=== PATIENT | male | born 1935 | race African-American/Black ===

== ENCOUNTER 2021-06-16 11:55 | Emergency (ER) | payer OTHER ==
[~2021-06-16] VITALS: Ht 180.3 cm; Wt 80.0 kg
[2021-06-16] MEDS ORDERED: ASPIRIN 81MG TABLET PO ONE (12:30)
[2021-06-16] MEDS ORDERED: SODIUM CHLORIDE 0.9% 1000ML BAG (SEPSIS BOLUS) IV ONE (12:30)
[2021-06-16 13:10] LABS: BASOPHILS % 0.7 % (0.0-2.0); EOSINOPHILS % 0.3 % (0.0-5.0); LYMPHOCYTES % 20.3 % (20.0-50.0); MEAN CORPUSCULAR HEMOGLOBIN 30.7 pg (28.0-32.0); MEAN CORPUSCULAR VOLUME 89.6 fL (80.0-94.0); MEAN PLATELET VOLUME 8.4 fl (7.4-10.4); MONOCYTES % 9.2 % (2.0-8.0); NEUTROPHILS % 69.5 % (40.0-76.0); PLATELET 132 x1000/uL (130-400); RED BLOOD CELL COUNT 4.57 mill/uL (4.7-6.1); RED CELL DISTRIBUTION WIDTH 14.9 % (11.6-14.6)
[2021-06-16 13:13] LABS: CHLORIDE 106 mEq/L (98-107)
[2021-06-16 13:20] LABS: BETA HYDROXYBUTYRATE 0.1 mMol/L (0.0-0.3)
[2021-06-16 13:31] LABS: D-DIMER 1.07 mg/L FEU (<0.50); PARTIAL THROMBOPLASTIN TIME 28.2 sec (23.4-31.0); PROTHROMBIN TIME 10.9 sec (9.6-11.0)
[2021-06-16 13:32] LABS: BG BASE EXCESS -0.1 mmol/L (-2.0-2.0); BG CARBOXYHEMOGLOBIN 0.6 % (0.5-1.5); BG DEOXYHEMOGLOBIN 2.9 % (0.0-5.0); BG FRACTION INSPIRED OXYGEN 21; BG HCO3 ACT 23.9 mmol/L (22.0-26.0); BG METHEMOGLOBIN 0.3 % (0.0-1.5); BG OXYGEN SATURATION 97.1 % (92.0-98.5); BG OXYHEMOGLOBIN 96.2 % (94.0-97.0); BG PCO2 37.2 mmHg (35.0-45.0); BG PH 7.426 (7.350-7.450); BG PO2 89.7 mmHg (75.0-100.0); BG SAMPLE SITE RIGHT RADIAL; BG TOTAL HEMOGLOBIN 14.4 g/dL (12.0-18.0); BG VENT MODE ROOM AIR
[2021-06-16 15:00] LABS: CLARITY URINE CLEAR (CLEAR); COLOR URINE YELLOW (YELLOW); KETONES URINE NEGATIVE (NEGATIVE); LEUKOCYTE ESTERASE URINE NEGATIVE (NEGATIVE); NITRITE URINE NEGATIVE (NEGATIVE); OCCULT BLOOD URINE NEGATIVE (NEGATIVE); PH URINE 6.5 (4.5-8.0); PROTEIN URINE 1+ (NEGATIVE); SPECIFIC GRAVITY URINE 1.022 (1.005-1.030)
[2021-06-16] MEDS ORDERED: IOHEXOL-350 100 ML BOTTLE ONE (16:29)
[2021-06-16 20:00] VITALS: BP 160/84
== END 2021-06-16 20:20 | disposition short-term general hospital (02) ==
LOC: ER 11:55
DX: R06.02 Shortness of breath (principal); E11.65 Type 2 diabetes mellitus with hyperglycemia; R94.31 Abnormal electrocardiogram [ECG] [EKG]; I10 Essential (primary) hypertension; Z79.4 Long term (current) use of insulin; J44.9 Chronic obstructive pulmonary disease, unspecified
CPT/HCPCS: 36415; 36600; 71045; 71275; 80053; 81003; 82010; 82375; 82805; 83880; 83930; 84484; 85025; 85379; 85610; 85730; 87086; 87426; 93005; 96360; 99285; J7030; Q9967

== ENCOUNTER 2021-08-09 10:34 | Inpatient (IN) | payer OTHER ==
[~2021-08-09] VITALS: Ht 188 cm; Wt 85.7 kg
[2021-08-09] MEDS ORDERED: ONDANSETRON HCL 4MG/2ML INJ IV STA (11:53)
[2021-08-09] MEDS ORDERED: MAGNESIUM/ALUMINUM HYDROXIDE/SIMETHICONE 30ML UDC PO STA (11:53)
[2021-08-09 12:11] LABS: BG BASE EXCESS 0.3 mmol/L (-2.0-2.0); BG CARBOXYHEMOGLOBIN 0.7 % (0.5-1.5); BG DEOXYHEMOGLOBIN 2.6 % (0.0-5.0); BG FRACTION INSPIRED OXYGEN 21; BG HCO3 ACT 23.3 mmol/L (22.0-26.0); BG METHEMOGLOBIN 0.4 % (0.0-1.5); BG OXYGEN SATURATION 97.4 % (92.0-98.5); BG OXYHEMOGLOBIN 96.3 % (94.0-97.0); BG PH 7.467 (7.350-7.450); BG PO2 88.9 mmHg (75.0-100.0); BG SAMPLE SITE LEFT RADIAL; BG TOTAL HEMOGLOBIN 14.4 g/dL (12.0-18.0); BG VENT MODE ROOM AIR
[2021-08-09 12:50] LABS: BASOPHILS % 0.7 % (0.0-2.0); EOSINOPHILS % 0.2 % (0.0-5.0); HEMATOCRIT. 42.7 % (42.0-52.0); HEMOGLOBIN. 14.4 g/dL (14.0-18.0); LYMPHOCYTES % 17.3 % (20.0-50.0); MEAN CORPUSCULAR HEMOGLOBIN 30.2 pg (28.0-32.0); MEAN CORPUSCULAR VOLUME 89.3 fL (80.0-94.0); MEAN PLATELET VOLUME 8.1 fl (7.4-10.4); MONOCYTES % 8.1 % (2.0-8.0); NEUTROPHILS % 73.7 % (40.0-76.0); PLATELET 138 x1000/uL (130-400); RED BLOOD CELL COUNT 4.78 mill/uL (4.7-6.1); RED CELL DISTRIBUTION WIDTH 14.6 % (11.6-14.6)
[2021-08-09 13:00] LABS: CHLORIDE 104 mEq/L (98-107)
[2021-08-09] MEDS ORDERED: ASPIRIN 325MG EC TABLET PO ONE (14:00)
[2021-08-09] MEDS ORDERED: IOHEXOL-350 100 ML BOTTLE ONE (14:53)
[2021-08-10] VITALS (7 sets, daily range): BP systolic 129–162; BP diastolic 60–92
[2021-08-10] MEDS ORDERED: ACETAMINOPHEN 325MG TABLET PO PRN (01:30)
[2021-08-10] MEDS ORDERED: IPRATROPIUM/ALBUTEROL 0.5-3(2.5)MG/3ML NEB HHN PRN ×2 (01:30→17:45)
[2021-08-10] MEDS ORDERED: DIPHENHYDRAMINE 50MG/ML VIAL IV PRN (01:30)
[2021-08-10] MEDS ORDERED: DEXTROSE 50% WATER 50ML SYRINGE IV PRN (01:30)
[2021-08-10] MEDS: ACETAMINOPHEN 325MG TABLET PO PRN (02:12)
[2021-08-10] MEDS: ENOXAPARIN 40MG/0.4ML SYR SUBCUT SCH (02:13)
[2021-08-10] MEDS: ZOLPIDEM TARTRATE 5MG TABLET PO PRN ×2 (02:13→21:15)
[2021-08-10] MEDS ORDERED: ESCI10TA PO (02:30)
[2021-08-10] MEDS ORDERED: CLOP75TA33 PO (02:31)
[2021-08-10] MEDS ORDERED: TAMS-11 PO (02:31)
[2021-08-10] MEDS ORDERED: ROSU40TA PO (02:32)
[2021-08-10] MEDS ORDERED: TRAM50TA3 PO (02:32)
[2021-08-10] MEDS ORDERED: AMLO2.5T45 MT (02:33)
[2021-08-10] MEDS ORDERED: LISI2.5T47 PO (02:33)
[2021-08-10] MEDS ORDERED: ASPI-1497 PO (02:34)
[2021-08-10] MEDS: SODIUM CHLORIDE 0.9% INJ 3ML FLUSH IVF SCH ×3 (05:49→21:16)
[2021-08-10] MEDS: INSULIN LISPRO 100 UNITS/ML SUBCUT SCH ×4 (05:53→21:00)
[2021-08-10] MEDS: BLOOD SUGAR DIAGNOSTIC STRIP TEST SCH ×4 (05:53→21:15)
[2021-08-10] MEDS: ASPIRIN 81MG EC TABLET PO SCH (08:50)
[2021-08-10] MEDS: CLONIDINE 0.1MG TABLET PO PRN (08:51)
[2021-08-10] MEDS: FAMOTIDINE 20MG TABLET PO SCH ×2 (08:51→21:15)
[2021-08-10] MEDS: ONDANSETRON HCL 4MG/2ML INJ IV PRN (12:49)
[2021-08-10] MEDS: IPRATROPIUM/ALBUTEROL 0.5-3(2.5)MG/3ML NEB HHN SCH (21:02)
[2021-08-11] VITALS: BP 150/62
[2021-08-11] MEDS: MAGNESIUM/ALUMINUM HYDROXIDE/SIMETHICONE 30ML UDC PO PRN (03:11)
[2021-08-11] MEDS: ONDANSETRON HCL 4MG/2ML INJ IV PRN (03:40)
[2021-08-11 04:00] VITALS: BP 137/76
[2021-08-11] MEDS: SODIUM CHLORIDE 0.9% INJ 3ML FLUSH IVF SCH ×2 (06:00→14:04)
[2021-08-11] MEDS: INSULIN LISPRO 100 UNITS/ML SUBCUT SCH ×4 (06:22→20:43)
[2021-08-11] MEDS: BLOOD SUGAR DIAGNOSTIC STRIP TEST SCH ×4 (06:22→20:43)
[2021-08-11 08:15] VITALS: BP 147/74
[2021-08-11] MEDS: ASPIRIN 81MG EC TABLET PO SCH (08:23)
[2021-08-11] MEDS: FAMOTIDINE 20MG TABLET PO SCH ×2 (08:23→20:44)
[2021-08-11] MEDS: ENOXAPARIN 40MG/0.4ML SYR SUBCUT SCH (08:24)
[2021-08-11] MEDS: IPRATROPIUM/ALBUTEROL 0.5-3(2.5)MG/3ML NEB HHN SCH (09:50)
[2021-08-11] MEDS ORDERED: MAGNESIUM CITRATE 300ML SOLUTION PO NR (12:00)
[2021-08-11 12:15] VITALS: BP 163/70
[2021-08-11] MEDS: CLONIDINE 0.1MG TABLET PO PRN (12:24)
[2021-08-11] MEDS ORDERED: NA PHOS,M-B/NA PHOS,DI-BA ENEMA 118ML PR NR (15:30)
[2021-08-11 16:30] VITALS: BP 143/73
[2021-08-11 20:00] VITALS: BP_SYST 137; BP_SYST 141; BP_DIAS 67; BP_DIAS 68
[2021-08-12] VITALS: BP 141/67
[2021-08-12] MEDS: IPRATROPIUM/ALBUTEROL 0.5-3(2.5)MG/3ML NEB HHN SCH ×2 (03:03→08:09)
[2021-08-12] MEDS: ACETAMINOPHEN 325MG TABLET PO PRN (03:51)
[2021-08-12] MEDS: SODIUM CHLORIDE 0.9% INJ 3ML FLUSH IVF SCH ×2 (03:51→12:34)
[2021-08-12 04:00] VITALS: BP 158/71
[2021-08-12] MEDS: MAGNESIUM/ALUMINUM HYDROXIDE/SIMETHICONE 30ML UDC PO PRN (04:41)
[2021-08-12] MEDS: BLOOD SUGAR DIAGNOSTIC STRIP TEST SCH ×2 (07:20→12:20)
[2021-08-12] MEDS: INSULIN LISPRO 100 UNITS/ML SUBCUT SCH ×2 (07:50→12:32)
[2021-08-12 08:00] VITALS: BP 117/69
[2021-08-12] MEDS: FAMOTIDINE 20MG TABLET PO SCH (09:25)
[2021-08-12] MEDS: ENOXAPARIN 40MG/0.4ML SYR SUBCUT SCH (09:25)
[2021-08-12] MEDS: ASPIRIN 81MG EC TABLET PO SCH (09:25)
[2021-08-12 12:00] VITALS: BP 163/81
[2021-08-12] MEDS: CLONIDINE 0.1MG TABLET PO PRN (12:33)
[2021-08-12 16:24] VITALS: BP 140/72
== END 2021-08-12 17:40 | disposition home or self-care (01) | DRG 189 ==
LOC: ER 10:34 → EDBEDREQTM 20:21 → EDBEDREQ 20:21 → ENRESERV 22:35 → 7WST 08-10 00:56 → 6WST 08-10 17:13
PROVIDERS: ADMIT Internal Medicine; ATTEND Internal Medicine
DX: J96.00 Acute respiratory failure, unspecified whether with hypoxia or hypercapnia (principal); I21.4 Non-ST elevation (NSTEMI) myocardial infarction; J44.1 Chronic obstructive pulmonary disease with (acute) exacerbation; I25.10 Atherosclerotic heart disease of native coronary artery without angina pectoris; E11.9 Type 2 diabetes mellitus without complications; Z20.822 Contact with and (suspected) exposure to COVID-19; I10 Essential (primary) hypertension; Z60.2 Problems related to living alone; Z95.2 Presence of prosthetic heart valve; Z87.891 Personal history of nicotine dependence
CPT/HCPCS: 36415; 36600; 71045; 71275; 80053; 80076; 82248; 82375; 82805; 82962; 83036; 83605; 83880; 84484; 85025; 85379; 87426; 93005; 93306; 94640; 99285; J1650; J2405; Q9967

== ENCOUNTER 2022-02-10 13:59 | Inpatient (IN) | payer OTHER, MEDICAID ==
[~2022-02-10] VITALS: Ht 180.3 cm; Wt 76.8 kg
[~2022-02-10 13:59] MED LIST: AMLO2.5T45 MT; ASPI-1497 PO; CLOP75TA33 PO; ESCI10TA PO; LISI2.5T47 PO; ROSU40TA PO; TAMS-11 PO; TRAM50TA3 PO
[2022-02-10 15:06] LABS: BASOPHILS % 0.7 % (0.0-2.0); EOSINOPHILS % 0.3 % (0.0-5.0); HEMATOCRIT. 43.1 % (42.0-52.0); HEMOGLOBIN. 14.8 g/dL (14.0-18.0); LYMPHOCYTES % 18.7 % (20.0-50.0); MEAN CORPUSCULAR VOLUME 90.4 fL (80.0-94.0); MEAN PLATELET VOLUME 9.1 fl (7.4-10.4); MONOCYTES % 7.9 % (2.0-8.0); NEUTROPHILS % 72.4 % (40.0-76.0); PLATELET 125 x1000/uL (130-400); RED BLOOD CELL COUNT 4.77 mill/uL (4.7-6.1)
[2022-02-10 15:13] LABS: CHLORIDE 107 mEq/L (98-107)
[2022-02-10] MEDS ORDERED: PROCHLORPERAZINE 10MG/2ML VIAL IV ONE (15:30)
[2022-02-10] MEDS ORDERED: SODIUM CHLORIDE 0.9% 1,000 ML IV ONE (15:30)
[2022-02-10] MEDS ORDERED: DIPHENHYDRAMINE 50MG/ML VIAL IV ONE (15:30)
[2022-02-10 17:18] LABS: PARTIAL THROMBOPLASTIN TIME 28.3 sec (23.4-31.0); PROTHROMBIN TIME 10.4 sec (9.6-11.0)
[2022-02-10 17:28] LABS: CLARITY URINE CLEAR (CLEAR); COLOR URINE YELLOW (YELLOW); KETONES URINE NEGATIVE (NEGATIVE); LEUKOCYTE ESTERASE URINE NEGATIVE (NEGATIVE); NITRITE URINE NEGATIVE (NEGATIVE); OCCULT BLOOD URINE NEGATIVE (NEGATIVE); PROTEIN URINE 1+ (NEGATIVE); UROBILINOGEN URINE 0.2 E.U./dL (0.2-1.0)
[2022-02-10] MEDS ORDERED: LABETALOL 5MG/ML SYR 20 MG/4 ML SYRINGE IV ONE (17:45)
[2022-02-10] MEDS ORDERED: ENOXAPARIN 80MG/0.8ML SYR SUBCUT NR (18:15)
[2022-02-10 22:30] VITALS: BP 182/90
[2022-02-10] MEDS ORDERED: MAGNESIUM/ALUMINUM HYDROXIDE/SIMETHICONE 30ML UDC PO PRN (22:45)
[2022-02-10] MEDS ORDERED: DIPHENHYDRAMINE 50MG/ML VIAL IV PRN (22:45)
[2022-02-10] MEDS ORDERED: DOCUSATE SODIUM 100MG CAPSULE PO PRN (22:45)
[2022-02-10] MEDS ORDERED: LORAZEPAM 2MG/ML CPJ IV PRN (22:45)
[2022-02-10] MEDS ORDERED: ENOXAPARIN 40MG/0.4ML SYR SUBCUT SCH (22:45)
[2022-02-10] MEDS ORDERED: ONDANSETRON HCL 4MG/2ML INJ IV PRN (22:45)
[2022-02-10] MEDS ORDERED: GUAIFENESIN 200MG/10ML SUGAR FREE UDC PO PRN (22:45)
[2022-02-10] MEDS ORDERED: IPRATROPIUM/ALBUTEROL 0.5-3(2.5)MG/3ML NEB HHN PRN (22:45)
[2022-02-10 23:00] VITALS: BP 186/90
[2022-02-10] MEDS: HYDROCODONE/ACETAMINOPHEN 5/325MG TABLET PO PRN (23:57)
[2022-02-10] MEDS: HYDRALAZINE 20MG/ML VIAL IV PRN (23:58)
[2022-02-11 00:30] VITALS: BP 157/92
[2022-02-11] MEDS ORDERED: ALBU6.7H9 INH (03:10)
[2022-02-11] MEDS ORDERED: METF750T46 PO (03:10)
[2022-02-11 04:00] VITALS: BP 180/85
[2022-02-11] MEDS: CLONIDINE 0.1MG TABLET PO PRN ×2 (05:17→21:58)
[2022-02-11] MEDS: SODIUM CHLORIDE 0.9% INJ 3ML FLUSH IVF SCH ×3 (05:18→21:58)
[2022-02-11] MEDS: HYDROCODONE/ACETAMINOPHEN 5/325MG TABLET PO PRN ×4 (05:18→22:02)
[2022-02-11 07:48] VITALS: BP 146/75
[2022-02-11 08:11] LABS: BASOPHILS % 0.7 % (0.0-2.0); EOSINOPHILS % 0.7 % (0.0-5.0); HEMATOCRIT. 43.7 % (42.0-52.0); HEMOGLOBIN. 14.6 g/dL (14.0-18.0); LYMPHOCYTES % 26.4 % (20.0-50.0); MEAN CORPUSCULAR HEMOGLOBIN 30.1 pg (28.0-32.0); MEAN CORPUSCULAR VOLUME 89.9 fL (80.0-94.0); MEAN PLATELET VOLUME 9.9 fl (7.4-10.4); MONOCYTES % 9.4 % (2.0-8.0); NEUTROPHILS % 62.8 % (40.0-76.0); PLATELET 130 x1000/uL (130-400); RED BLOOD CELL COUNT 4.86 mill/uL (4.7-6.1)
[2022-02-11] MEDS: ENOXAPARIN 30MG/0.3ML SYR SUBCUT SCH (08:15)
[2022-02-11 08:55] LABS: CHLORIDE 108 mEq/L (98-107)
[2022-02-11] MEDS: ASPIRIN 81MG TABLET PO SCH (10:43)
[2022-02-11 11:37] VITALS: BP 158/76
[2022-02-11] MEDS: CARVEDILOL 3.125 MG TABLET PO SCH ×2 (11:45→21:58)
[2022-02-11] MEDS: AMLODIPINE 5MG TABLET PO SCH (11:45)
[2022-02-11] MEDS ORDERED: NALOXONE HCL 0.4MG/ML VIAL IV PRN (14:45)
[2022-02-11 15:37] VITALS: BP 161/71
[2022-02-11 20:00] VITALS: BP 177/82
[2022-02-12] VITALS (7 sets, daily range): BP systolic 126–167; BP diastolic 64–82
[2022-02-12] MEDS: MORPHINE SULFATE 2 MG/ML CPJ (NOT FOR IM USE) IV PRN ×2 (02:23→08:46)
[2022-02-12] MEDS: SODIUM CHLORIDE 0.9% INJ 3ML FLUSH IVF SCH ×3 (05:17→21:18)
[2022-02-12] MEDS: ENOXAPARIN 30MG/0.3ML SYR SUBCUT SCH (08:52)
[2022-02-12] MEDS: AMLODIPINE 5MG TABLET PO SCH (08:53)
[2022-02-12] MEDS: ASPIRIN 81MG TABLET PO SCH (09:01)
[2022-02-12] MEDS ORDERED: HEPARIN SODIUM 1,000 UNIT/1ML VIAL IV ONE (09:18)
[2022-02-12] MEDS ORDERED: NICARDIPINE 100MCG/ML 10ML VIAL (CATH LAB) IV ONE (09:18)
[2022-02-12] MEDS: CARVEDILOL 3.125 MG TABLET PO SCH ×2 (09:45→20:06)
[2022-02-12 12:12] LABS: BASOPHILS % 0.4 % (0.0-2.0); EOSINOPHILS % 0.5 % (0.0-5.0); HEMATOCRIT. 43.9 % (42.0-52.0); HEMOGLOBIN. 14.7 g/dL (14.0-18.0); MEAN CORPUSCULAR HEMOGLOBIN 29.8 pg (28.0-32.0); MEAN CORPUSCULAR VOLUME 89.3 fL (80.0-94.0); MEAN PLATELET VOLUME 9.9 fl (7.4-10.4); MONOCYTES % 8.9 % (2.0-8.0); NEUTROPHILS % 71.2 % (40.0-76.0); PLATELET 131 x1000/uL (130-400); RED BLOOD CELL COUNT 4.92 mill/uL (4.7-6.1); RED CELL DISTRIBUTION WIDTH 15.4 % (11.6-14.6)
[2022-02-12 12:25] LABS: CHLORIDE 104 mEq/L (98-107)
[2022-02-12] MEDS ORDERED: MIDAZOLAM HCL 2 MG/2 ML VIAL ONE (15:22)
[2022-02-12] MEDS ORDERED: IODIXANOL 320MG/ML 100 ML BOTTLE IV ONE (15:22)
[2022-02-12] MEDS ORDERED: FENTANYL CITRATE/PF 50MCG/ML 2ML VIAL ONE (15:22)
[2022-02-12] MEDS ORDERED: VERAPAMIL HCL 2.5 MG/1 ML 2ML VIAL IV ONE (15:33)
[2022-02-12] MEDS ORDERED: LIDOCAINE HCL 1% 10 MG/ML 10ML VIAL ONE (15:37)
[2022-02-12] MEDS ORDERED: DIPHENHYDRAMINE 50MG/ML VIAL ONE (15:45)
[2022-02-12] MEDS ORDERED: HYDRALAZINE 20MG/ML VIAL ONE ×2 (16:17→16:31)
[2022-02-12] MEDS ORDERED: ATROPINE SULFATE 1MG/10ML SYR ONE (17:03)
[2022-02-12] MEDS ORDERED: ATROPINE SULFATE 1MG/10ML SYR IV PRN (17:15)
[2022-02-12] MEDS: ACETAMINOPHEN 325MG TABLET PO PRN (20:01)
[2022-02-12] MEDS: ATORVASTATIN CALCIUM 40MG TABLET PO SCH (20:06)
[2022-02-12] MEDS: CLONIDINE 0.1MG TABLET PO PRN (20:08)
[2022-02-13] VITALS (13 sets, daily range): BP systolic 98–163; BP diastolic 47–78
[2022-02-13] MEDS: SODIUM CHLORIDE 0.9% INJ 3ML FLUSH IVF SCH ×3 (05:39→21:29)
[2022-02-13 06:03] LABS: BASOPHILS % 0.3 % (0.0-2.0); EOSINOPHILS % 0.2 % (0.0-5.0); HEMATOCRIT. 41.7 % (42.0-52.0); LYMPHOCYTES % 14.3 % (20.0-50.0); MEAN CORPUSCULAR HEMOGLOBIN 30.1 pg (28.0-32.0); MEAN CORPUSCULAR VOLUME 89.4 fL (80.0-94.0); MEAN PLATELET VOLUME 9.8 fl (7.4-10.4); MONOCYTES % 8.8 % (2.0-8.0); NEUTROPHILS % 76.4 % (40.0-76.0); PLATELET 124 x1000/uL (130-400); RED BLOOD CELL COUNT 4.66 mill/uL (4.7-6.1); RED CELL DISTRIBUTION WIDTH 15.3 % (11.6-14.6)
[2022-02-13 07:04] LABS: CHLORIDE 106 mEq/L (98-107)
[2022-02-13] MEDS: ENOXAPARIN 40MG/0.4ML SYR SUBCUT SCH (08:25)
[2022-02-13] MEDS: ASPIRIN 81MG TABLET PO SCH (08:25)
[2022-02-13] MEDS: CARVEDILOL 3.125 MG TABLET PO SCH (08:28)
[2022-02-13] MEDS: AMLODIPINE 5MG TABLET PO SCH (08:28)
[2022-02-13] MEDS: PANTOPRAZOLE SODIUM 40 MG/VIAL IV SCH (13:59)
[2022-02-13] MEDS: TAMSULOSIN HCL 0.4MG SR CAPSULE PO SCH (13:59)
[2022-02-13] MEDS: ACETAMINOPHEN 325MG TABLET PO PRN (18:31)
[2022-02-13] MEDS: ATORVASTATIN CALCIUM 40MG TABLET PO SCH (21:28)
[2022-02-13] MEDS: HYDROCODONE/ACETAMINOPHEN 5/325MG TABLET PO PRN (22:39)
[2022-02-14] VITALS (12 sets, daily range): BP systolic 107–187; BP diastolic 58–94
[2022-02-14] MEDS: SODIUM CHLORIDE 0.9% INJ 3ML FLUSH IVF SCH ×3 (06:14→21:28)
[2022-02-14] MEDS: ENOXAPARIN 40MG/0.4ML SYR SUBCUT SCH (08:31)
[2022-02-14] MEDS: ACETAMINOPHEN 325MG TABLET PO PRN ×2 (08:31→14:48)
[2022-02-14] MEDS: PANTOPRAZOLE SODIUM 40 MG/VIAL IV SCH (08:32)
[2022-02-14] MEDS: ASPIRIN 81MG TABLET PO SCH (08:32)
[2022-02-14] MEDS: TAMSULOSIN HCL 0.4MG SR CAPSULE PO SCH (08:32)
[2022-02-14] MEDS: HYDRALAZINE 20MG/ML VIAL IV PRN (14:42)
[2022-02-14] MEDS: FAMOTIDINE 20MG/2ML VIAL IV SCH (20:17)
[2022-02-14] MEDS: ATORVASTATIN CALCIUM 40MG TABLET PO SCH (20:17)
[2022-02-15] VITALS: BP 156/83
[2022-02-15 02:00] VITALS: BP 172/72
[2022-02-15 04:00] VITALS: BP 157/84
[2022-02-15 06:00] VITALS: BP 129/60
[2022-02-15] MEDS: SODIUM CHLORIDE 0.9% INJ 3ML FLUSH IVF SCH (06:52)
[2022-02-15 08:00] VITALS: BP 148/80
[2022-02-15] MEDS: FAMOTIDINE 20MG/2ML VIAL IV SCH (08:33)
[2022-02-15] MEDS: TAMSULOSIN HCL 0.4MG SR CAPSULE PO SCH (08:34)
[2022-02-15] MEDS: ENOXAPARIN 40MG/0.4ML SYR SUBCUT SCH (08:35)
[2022-02-15] MEDS: ASPIRIN 81MG TABLET PO SCH (08:35)
[2022-02-15 10:00] VITALS: BP 155/68
== END 2022-02-15 11:00 | disposition home or self-care (01) | DRG 281 ==
LOC: ER 14:09 → 6WST 18:14 → ENRESERV 21:14 → 5EST 02-12 18:04
PROVIDERS: ADMIT Internal Medicine; ATTEND Internal Medicine
PROC: B2111ZZ Fluoroscopy of Multiple Coronary Arteries using Low Osmolar Contrast (ICD-10-PCS; principal; 2022-02-12)
DX: I21.4 Non-ST elevation (NSTEMI) myocardial infarction (principal); E44.1 Mild protein-calorie malnutrition; I25.10 Atherosclerotic heart disease of native coronary artery without angina pectoris; I16.0 Hypertensive urgency; J44.9 Chronic obstructive pulmonary disease, unspecified; E11.9 Type 2 diabetes mellitus without complications; E78.5 Hyperlipidemia, unspecified; F17.210 Nicotine dependence, cigarettes, uncomplicated; I10 Essential (primary) hypertension; R77.8 Other specified abnormalities of plasma proteins; R51.9 Headache, unspecified; R33.9 Retention of urine, unspecified; Z86.73 Personal history of transient ischemic attack (TIA), and cerebral infarction without residual deficits; Z95.2 Presence of prosthetic heart valve; Z96.641 Presence of right artificial hip joint; Z20.822 Contact with and (suspected) exposure to COVID-19; Z68.23 Body mass index [BMI] 23.0-23.9, adult; R55 Syncope and collapse; R00.1 Bradycardia, unspecified
CPT/HCPCS: 36415; 71045; 80048; 80053; 80061; 81003; 82962; 83735; 83880; 84484; 85025; 87426; 93005; 93306; 93454; 93970; 94640; 97162; 99291; C1769; C1887; C1893; C9113; J0360; J0461; J0780; J1200; J1644; J1650; J2250; J2270; J3010; J3490; J7030; Q9967